=== PATIENT | male | born 1975 | race African-American/Black ===

== ENCOUNTER 2016-05-01 17:48 | Emergency (ER) | payer SELFPAY ==
[2016-05-01 17:56] VITALS: BP 124/81
[2016-05-01] MEDS ORDERED: IBUPROFEN 800 MG TABLET PO ONE (18:12)
--- NOTE | 2016-05-01 18:12 | ER Document Report ---
ED Medical Screen (RME) - General Stated Complaint: NUMBNESS, BURNING AND PAIN IN LEGS Time seen by provider: 18:09 Mode of Arrival: Ambulatory Information source: Patient Notes: 41 yo male presents to ed for pain and numbness to both leg, denies any long trips, smoking, or injuries. 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 IN LAST 30 DAYS: No - HPI Onset: Yesterday Onset/Duration: Gradual Quality of pain: Burning - and numbness Severity: Moderate Pain Level: 4 Associated Symptoms: Other - pain and numbness both legs Exacerbated by: Other - shoes on Relieved by: Denies Similar symptoms previously: No Recently seen / treated by doctor: No - Related Data Smoking: Non-smoker Frequency of alcohol use: None Drug Abuse: None Allergies/Adverse Reactions: No Known Allergies Allergy (Verified 08/14/12 00:22) Past Medical History - Social History Family history: DM, Malignancy Musculoskeltal Medical History: Reports Hx Musculoskeletal Deformity, Reports Hx Musculoskeletal Trauma - Pelvic fracture hip fracture Psychiatric Medical History: Reports: Hx Bipolar Disorder Traumatic Medical History: Reports: Hx Fractures - PELVIC FX Past Surgical History: Reports: Hx Orthopedic Surgery - left hip, right knee - Immunizations Immunizations up to date: Yes Hx Diphtheria, Pertussis, Tetanus Vaccination: Yes Physical Exam - Vital signs Vitals: Temp Pulse Resp BP Pulse Ox 98.5 F 79 18 124/81 98 05/01/16 17:54 05/01/16 17:54 05/01/16 17:54 05/01/16 17:54 05/01/16 17:54 Course - Vital Signs Vital signs: Temp Pulse Resp BP Pulse Ox 98.5 F 79 18 124/81 98 05/01/16 17:54 05/01/16 17:54 05/01/16 17:54 05/01/16 17:54 05/01/16 17:54
== END 2016-05-01 23:30 | disposition left against medical advice (07) ==
LOC: ER 17:48
DX: R20.0 Anesthesia of skin (principal); M79.605 Pain in left leg; M79.604 Pain in right leg; Z96.642 Presence of left artificial hip joint
CPT/HCPCS: 99281

== ENCOUNTER 2016-05-13 13:29 | Emergency (ER) | payer SELFPAY ==
--- NOTE | 2016-05-13 13:55 | ER Document Report ---
ED Medical Screen (RME) - General Stated Complaint: LEFT ARM PAIN Mode of Arrival: Ambulatory Information source: Patient Notes: Patient reports left elbow tenderness that started 2 days ago. Pain increases with range of motion. Patient denies any injury. Normal skin color and temperature overlying joint. TRAVEL OUTSIDE OF THE [place] IN LAST 30 DAYS: No - Related Data Allergies/Adverse Reactions: No Known Allergies Allergy (Verified 05/13/16 13:52) Past Medical History - Social History Family history: DM, Malignancy Musculoskeltal Medical History: Reports Hx Musculoskeletal Deformity, Reports Hx Musculoskeletal Trauma - Pelvic fracture hip fracture Psychiatric Medical History: Reports: Hx Bipolar Disorder Traumatic Medical History: Reports: Hx Fractures - PELVIC FX Past Surgical History: Reports: Hx Orthopedic Surgery - left hip, right knee - Immunizations Immunizations up to date: Yes Hx Diphtheria, Pertussis, Tetanus Vaccination: Yes Physical Exam - Vital signs Vitals: Temp Pulse Resp BP Pulse Ox 98.1 F 91 18 139/86 H 97 05/13/16 13:45 05/13/16 13:45 05/13/16 13:45 05/13/16 13:45 05/13/16 13:45 - Extremities General upper extremity: Tender - Left elbow Course - Vital Signs Vital signs: Temp Pulse Resp BP Pulse Ox 98.1 F 91 18 139/86 H 97 05/13/16 13:45 05/13/16 13:45 05/13/16 13:45 05/13/16 13:45 05/13/16 13:45
--- NOTE | 2016-05-13 15:49 | ER Document Report ---
ED Extremity Problem, Upper - General Chief Complaint: Elbow Injury Stated Complaint: LEFT ARM PAIN Time seen by provider: 15:45 Mode of Arrival: Ambulatory Notes: This is a 41-year-old male that presents today with left elbow pain for the past 3 days. He states that it is a constant 10 out of 10 pain with no radiation. He is unable to lift any weight with the left arm and the pain is worse with movement. He describes the pain as a throb alternating with a sharp pain with movement. Denies nausea vomiting fever or chills. Patient denies any injury to the extremity. He states that he does have pain medicine at home. TRAVEL OUTSIDE OF THE [place] IN LAST 30 DAYS: No - Related Data Allergies/Adverse Reactions: No Known Allergies Allergy (Verified 05/13/16 13:52) Past Medical History - General Information source: Patient - Social History Smoking Status: Never Smoker Chew tobacco use (# tins/day): No Frequency of alcohol use: None Drug Abuse: None Family History: DM, Hypertension Patient has suicidal ideation: No Patient has homicidal ideation: No Renal/ Medical History: Denies: Hx Peritoneal Dialysis Musculoskeltal Medical History: Reports Hx Musculoskeletal Deformity, Reports Hx Musculoskeletal Trauma - Pelvic fracture hip fracture Psychiatric Medical History: Reports: Hx Bipolar Disorder Traumatic Medical History: Reports: Hx Fractures - PELVIC FX Past Surgical History: Reports: Hx Orthopedic Surgery - left hip, right knee - Immunizations Immunizations up to date: Yes Hx Diphtheria, Pertussis, Tetanus Vaccination: Yes Review of Systems - Review of Systems Constitutional: denies: Chills, Fever EENT: No symptoms reported Cardiovascular: No symptoms reported Respiratory: No symptoms reported Gastrointestinal: No symptoms reported Genitourinary: No symptoms reported Musculoskeletal: See HPI Skin: No symptoms reported Hematologic/Lymphatic: No symptoms reported Neurological/Psychological: No symptoms reported Physical Exam - Vital signs Vitals: Temp Pulse Resp BP Pulse Ox 98.1 F 91 18 139/86 H 97 05/13/16 13:45 05/13/16 13:45 05/13/16 13:45 05/13/16 13:45 05/13/16 13:45 - General General appearance: Appears well In distress: None - HEENT Head: Normocephalic, Atraumatic Eyes: Normal Conjunctiva: Normal - Respiratory Respiratory status: No respiratory distress Breath sounds: Normal. No: Rales, Rhonchi, Stridor, Wheezing - Cardiovascular Rhythm: Regular Heart sounds: Normal auscultation - Abdominal Bowel sounds: Normal Tenderness: Nontender - Back Back: Normal, Nontender - Extremities General upper extremity: Normal inspection, Nontender, Normal strength, Normal temperature General lower extremity: Normal inspection, Nontender, Normal strength, Normal temperature - Neurological Cognition: Normal. No: Confused - Psychological Associated symptoms: Normal affect, Normal mood - Skin Skin Temperature: Warm Skin Moisture: Dry Skin Color: Normal Course - Re-evaluation Re-evalutation: 05/13/16 15:50 Patient does not have any elbow swelling. Skin is normal temperature and color. Patient was given multiple opportunities to ask questions. Radiograph results was shared with the patient. He states that he will follow-up with primary care physician. - Vital Signs Vital signs: Temp Pulse Resp BP Pulse Ox 98.3 F 73 16 136/88 H 99 05/13/16 16:01 05/13/16 16:01 05/13/16 16:01 05/13/16 16:01 05/13/16 16:01 Discharge - Discharge Clinical Impression: Left elbow pain Condition: Stable Disposition: HOME, SELF-CARE Additional Instructions: Return to the emergency department if symptoms worsen such as swelling, redness , decreased range of motion, decreased sensation,etc. Follow-up with primary care physician and orthopedics as soon as possible. Referrals: Benton Ridgealonso [facility] [Provider Group] - Follow up as needed
[2016-05-13 16:07] VITALS: BP 136/88
== END 2016-05-13 16:03 | disposition home or self-care (01) ==
LOC: ER 13:29
DX: S59.902A Unspecified injury of left elbow, initial encounter (principal); M25.522 Pain in left elbow; X58.XXXA Exposure to other specified factors, initial encounter
CPT/HCPCS: 99283

== ENCOUNTER 2017-06-02 23:59 | Emergency (ER) | payer SELFPAY ==
[2017-06-03] MEDS ORDERED: LIDOCAINE 1% INJ-PF (10 MG/ML) 30 ML SDV INJ ONE (01:07)
--- NOTE | 2017-06-03 01:12 | ER Document Report ---
ED Hand/Wrist Injury - General Chief Complaint: Hand Swelling Stated Complaint: FINGER PAIN Time Seen by Provider: 06/03/17 00:48 Mode of Arrival: Ambulatory Information source: Patient Notes: Patient is a 42-year-old male who presents to the ER today for swelling, redness , pain to his right fourth finger that he woke up with this morning. Patient denies any injury, insect bite, fever, chills or other signs of infection. He denies any drainage. TRAVEL OUTSIDE OF THE [place] IN LAST 30 DAYS: No - Related Data Allergies/Adverse Reactions: No Known Allergies Allergy (Verified 05/13/16 13:52) Past Medical History - General Information source: Patient - Social History Smoking Status: Never Smoker Chew tobacco use (# tins/day): No Frequency of alcohol use: None Drug Abuse: None Family History: DM, Hypertension Patient has suicidal ideation: No Patient has homicidal ideation: No Renal/ Medical History: Denies: Hx Peritoneal Dialysis Musculoskeltal Medical History: Reports Hx Musculoskeletal Deformity, Reports Hx Musculoskeletal Trauma - Pelvic fracture hip fracture Psychiatric Medical History: Reports: Hx Bipolar Disorder Traumatic Medical History: Reports: Hx Fractures - PELVIC FX Past Surgical History: Reports: Hx Orthopedic Surgery - left hip, right knee - Immunizations Immunizations up to date: Yes Hx Diphtheria, Pertussis, Tetanus Vaccination: Yes Review of Systems - Review of Systems Constitutional: No symptoms reported EENT: No symptoms reported Cardiovascular: No symptoms reported Respiratory: No symptoms reported Gastrointestinal: No symptoms reported Genitourinary: No symptoms reported Male Genitourinary: No symptoms reported Musculoskeletal: No symptoms reported Skin: See HPI Hematologic/Lymphatic: No symptoms reported Neurological/Psychological: No symptoms reported Physical Exam - Vital signs Vitals: Temp Pulse Resp BP Pulse Ox 98.8 F 98 16 146/80 H 99 06/03/17 00:02 06/03/17 00:02 06/03/17 00:02 06/03/17 00:02 06/03/17 00:02 - Notes Notes: PHYSICAL EXAMINATION: GENERAL: Well-appearing and in no acute distress. HEAD: Atraumatic, normocephalic. EYES: Pupils equal round and reactive to light, extraocular movements intact, sclera anicteric, conjunctiva are normal. NECK: Normal range of motion, supple without lymphadenopathy LUNGS: CTAB and equal. No wheezes rales or rhonchi. HEART: Regular rate and rhythm without murmurs ABDOMEN: Soft, no tenderness. No guarding, no rebound BACK: no vertebral tenderness, normal ROM GI/: no CVA tenderness EXTREMITIES: Normal range of motion, no pitting edema. No cyanosis. NEUROLOGICAL: Cranial nerves grossly intact. Normal sensory/motor exams. PSYCH: Normal mood, normal affect. SKIN: Warm, Dry, normal turgor, erythema and edema to the distal portion of the fourth digit on the right hand, exquisitely tender to palpation, fluctuance at the base of the nailbed consistent with paronychia Course - Vital Signs Vital signs: Temp Pulse Resp BP Pulse Ox 99.1 F 76 16 133/76 H 99 06/03/17 02:27 06/03/17 02:27 06/03/17 02:27 06/03/17 02:27 06/03/17 02:27 Procedures - Incision and Drainage Right Finger 4th digit Time completed: 02:00 Type: Simple Blade size: 11 I&D procedure: Betadine prep applied Incision Method: Incision made by scalpel Amount/type of drainage: thick pus - Additional Procedures digital block Time performed: 02:00 Additional Procedures: Other - digital block with 1% lidocaine, 5ml total to base of dorsal digit, 22g needle, prepared with betadine Discharge - Discharge Clinical Impression: Paronychia Condition: Stable Disposition: HOME, SELF-CARE Additional Instructions: Return immediately for any new or worsening symptoms. Follow up with primary care provider, call tomorrow to make followup appointment. Prescriptions: Cephalexin Monohydrate [Keflex 500 mg Capsule] 500 mg PO BID 7 Days #14 capsule Referrals: PERRY JARQUIN MD [Primary Care Provider] - Follow up as needed ISSAC OBREGON DO [ACTIVE STAFF] - Follow up as needed
[2017-06-03 02:31] VITALS: BP 133/76
== END 2017-06-03 02:31 | disposition home or self-care (01) ==
LOC: ER 23:59
DX: L03.011 Cellulitis of right finger (principal)
CPT/HCPCS: 99283; 10060; J3490

== ENCOUNTER 2017-08-04 14:23 | Emergency (ER) | payer SELFPAY ==
[2017-08-04 14:45] VITALS: BP 154/86
--- NOTE | 2017-08-04 15:21 | ER Document Report ---
ED Medical Screen (RME) - General Chief Complaint: Urinary Problem Stated Complaint: URINARY PROBLEMS Time Seen by Provider: 08/04/17 15:17 Mode of Arrival: Ambulatory Information source: Patient Notes: 42 yo male see by [facility] therapist (loyd) ordered UA and it had blood in it. Pt has had hematuria,clots, dysuria and tri. pelvic pain for 3 days. No penile discharge. No testicle pain or swelling. No hx prostatitis. No blood in stools, no diarrhea or constipation. No fever or chills. Abstinant for over 2 years. No hx cancer. No anticoagulants. No ETOH. TRAVEL OUTSIDE OF THE [place] IN LAST 30 DAYS: No - Related Data Allergies/Adverse Reactions: No Known Allergies Allergy (Verified 08/04/17 14:23) Past Medical History - Social History Family history: DM, Malignancy Renal/ Medical History: Denies: Hx Peritoneal Dialysis Musculoskeltal Medical History: Reports Hx Musculoskeletal Deformity, Reports Hx Musculoskeletal Trauma - Pelvic fracture hip fracture Psychiatric Medical History: Reports: Hx Bipolar Disorder Traumatic Medical History: Reports: Hx Fractures - PELVIC FX Past Surgical History: Reports: Hx Orthopedic Surgery - left hip, right knee - Immunizations Immunizations up to date: Yes Hx Diphtheria, Pertussis, Tetanus Vaccination: Yes Physical Exam - Vital signs Vitals: Temp Pulse Resp BP Pulse Ox 98.3 F 107 H 18 154/86 H 97 08/04/17 14:24 08/04/17 14:24 08/04/17 14:24 08/04/17 14:24 08/04/17 14:24 Course - Vital Signs Vital signs: Temp Pulse Resp BP Pulse Ox 98.3 F 107 H 18 154/86 H 97 08/04/17 14:24 08/04/17 14:24 08/04/17 14:24 08/04/17 14:24 08/04/17 14:24
[2017-08-04 17:19] LABS: ABSOLUTE EOSINOPHILS # (AUTO) 0.1 10^3/uL (0.0-0.6); ABSOLUTE LYMPHOCYTES (AUTO) 1.2 10^3/uL (0.5-4.7); ABSOLUTE MONOCYTES (AUTO) 0.4 10^3/uL (0.1-1.4); ABSOLUTE NEUT (AUTO) 3.5 10^3/uL (1.7-8.2); BASOPHILS % (AUTO) 0.6 % (0-2); HEMATOCRIT 46.3 % (37.9-51.0); HEMOGLOBIN 14.7 g/dL (13.5-17.0); LYMPHOCYTES % (AUTO) 23.7 % (13-45); MEAN CORPUSCULAR HEMOGLOBIN 25.5 pg (27.0-33.4); MEAN CORPUSCULAR HGB CONC 31.7 g/dL (32.0-36.0); MEAN CORPUSCULAR VOLUME 80 fl (80-97); PLATELET COUNT 284 10^3/uL (150-450); RED BLOOD COUNT 5.76 10^6/uL (4.35-5.55); RED CELL DISTRIBUTION WIDTH 14.6 % (11.5-14.0); SEGMENTED NEUTROPHILS % (AUTO) 67.7 % (42-78); TOTAL CELLS COUNTED % (AUTO) 100 %; WHITE BLOOD COUNT 5.1 10^3/uL (4.0-10.5)
[2017-08-04 17:32] LABS: APPEARANCE,URINE CLEAR; BILIRUBIN,URINE NEGATIVE (NEGATIVE); COLOR,URINE YELLOW; GLUCOSE, URINE NEGATIVE (NEGATIVE); KETONES,URINE NEGATIVE (NEGATIVE); LEUKOCYTE ESTERASE,URINE NEGATIVE (NEGATIVE); NITRITE,URINE NEGATIVE (NEGATIVE); PROTEIN,URINE NEGATIVE (NEGATIVE); URINE SPECIFIC GRAVITY 1.012; UROBILINOGEN,URINE NEGATIVE mg/dL (<2.0)
[2017-08-04 17:38] LABS: ALANINE AMINOTRANSFERASE 29 U/L (21-72); ALBUMIN 3.9 g/dL (3.5-5.0); ALKALINE PHOSPHATASE 52 U/L (38-126); ANION GAP 10 (5-19); ASPARTATE AMINO TRANSFERASE 17 U/L (17-59); BILIRUBIN,DIRECT 0.3 mg/dL (0.0-0.4); BLOOD UREA NITROGEN 10 mg/dL (7-20); CALCIUM 9.3 mg/dL (8.4-10.2); CARBON DIOXIDE 28 mmol/L (22-30); CHLORIDE 102 mmol/L (98-107); GLUCOSE 99 mg/dL (75-110); POTASSIUM 4.3 mmol/L (3.6-5.0); SODIUM 140.4 mmol/L (137-145); TOTAL PROTEIN 6.3 g/dL (6.3-8.2)
--- NOTE | 2017-08-04 18:06 | ER Document Report ---
ED General - General Chief Complaint: Urinary Problem Stated Complaint: URINARY PROBLEMS Time Seen by Provider: 08/04/17 15:17 Mode of Arrival: Ambulatory TRAVEL OUTSIDE OF THE [place] IN LAST 30 DAYS: No - HPI Patient complains to provider of: Hematuria Notes: Patient was [place] [facility] and was directed to the ER for blood in his urine and low white count. Upon seeing the patient patient's patient room upon my entrance patient looks to me states "what my results". I asked that the patient was anxious to leave patient states yes. Patient denies any fever chills nausea vomiting. Denies any flank pain. Patient denies any penile discharge denies any sexual intercourse in the last 2 weeks. Patient again is anxious to leave. - Related Data Allergies/Adverse Reactions: No Known Allergies Allergy (Verified 08/04/17 14:23) Past Medical History - General Information source: Patient - Social History Smoking Status: Never Smoker Chew tobacco use (# tins/day): No Frequency of alcohol use: None Drug Abuse: None Family History: DM, Hypertension Patient has suicidal ideation: No Patient has homicidal ideation: No Renal/ Medical History: Denies: Hx Peritoneal Dialysis Musculoskeltal Medical History: Reports Hx Musculoskeletal Deformity, Reports Hx Musculoskeletal Trauma - Pelvic fracture hip fracture Psychiatric Medical History: Reports: Hx Bipolar Disorder Traumatic Medical History: Reports: Hx Fractures - PELVIC FX Past Surgical History: Reports: Hx Orthopedic Surgery - left hip, right knee - Immunizations Immunizations up to date: Yes Hx Diphtheria, Pertussis, Tetanus Vaccination: Yes Review of Systems - Review of Systems Constitutional: No symptoms reported EENT: No symptoms reported Cardiovascular: No symptoms reported Respiratory: No symptoms reported Gastrointestinal: No symptoms reported Genitourinary: Hematuria Male Genitourinary: No symptoms reported Musculoskeletal: No symptoms reported Skin: No symptoms reported Hematologic/Lymphatic: No symptoms reported Neurological/Psychological: No symptoms reported -: Yes All other systems reviewed and negative Physical Exam - Vital signs Vitals: Temp Pulse Resp BP Pulse Ox 98.3 F 107 H 18 154/86 H 97 08/04/17 14:24 08/04/17 14:24 08/04/17 14:24 08/04/17 14:24 08/04/17 14:24 Interpretation: Normal - General General appearance: Appears well, Alert - HEENT Head: Normocephalic, Atraumatic Eyes: Normal Pupils: PERRL - Respiratory Respiratory status: No respiratory distress - Extremities General upper extremity: Normal ROM General lower extremity: Normal ROM, Normal weight bearing - Neurological Neuro grossly intact: Yes Cognition: Normal Gomez Coma Scale Eye Opening: Spontaneous Gomez Coma Scale Verbal: Oriented [place] Coma Scale Motor: Obeys Commands Gomez Coma Scale Total: 15 Speech: Normal Motor strength normal: LUE, RUE, LLE, RLE Sensory: Normal - Psychological Associated symptoms: Agitated, Angry - Skin Skin Temperature: Warm Skin Moisture: Dry Skin Color: Normal Course - Re-evaluation Re-evalutation: 08/04/17 22:38 After asking the patient if you questions he again stated that he would just like it was results refusing a thorough physical examination. Physical examination was based off observation seen patient ambulate around the room. Patient placed on a scope explained to patient there are signs of blood in his urine no signs of any infection. The patient's history of no flank pain with do not suspect kidney stones at this time. Patient states understanding is requesting to be discharged immediately. - Vital Signs Vital signs: Temp Pulse Resp BP Pulse Ox 98.7 F 87 18 154/86 H 99 08/04/17 18:09 08/04/17 18:09 08/04/17 18:09 08/04/17 14:24 08/04/17 18:09 - Laboratory Result Diagrams: 08/04/17 16:50 08/04/17 16:50 Laboratory results interpreted by me: 08/04/17 08/04/17 16:50 17:15 RBC 5.76 H MCH 25.5 L MCHC 31.7 L RDW 14.6 H Urine Blood LARGE H Discharge - Discharge Clinical Impression: Hematuria Qualifiers: Hematuria type: unspecified type Qualified Code(s): R31.9 - Hematuria, unspecified Condition: Good Disposition: HOME, SELF-CARE Instructions: Hematuria ([facility]) Additional Instructions: Your laboratory studies showed a small amount of blood and urine however no signs of significant pathology. Without any flank pain I do not suspect any kidney stones. I will make sure that she follow-up with your primary care physician or physicians listed. Return to ER symptoms worsen. Forms: Return to Work
[2017-08-04 18:48] LABS: CHLAM PCR NOT DETECTED (NOT DETECT); GON PCR NOT DETECTED (NOT DETECT)
== END 2017-08-04 18:09 | disposition home or self-care (01) ==
LOC: ER 14:23
DX: R31.9 Hematuria, unspecified (principal)
CPT/HCPCS: 36415; 80053; 81001; 85025; 87086; 87491; 87591; 99283

== ENCOUNTER 2018-07-10 21:21 | Emergency (ER) | payer OTHER ==
--- NOTE | 2018-07-10 23:57 | RADIOLOGY REPORT (SQ) ---
EXAM DESCRIPTION: XR KNEE 4 OR MORE VIEWS COMPLETED DATE/TME: 07/10/2018 22:17 CLINICAL HISTORY: 43 years, Male, INJURY COMPARISON: 07/24/2015. NUMBER OF VIEWS: Four TECHNIQUE: Four views of the knee were obtained in AP, bilateral oblique and lateral projection. LIMITATIONS: None. FINDINGS: Degenerative change of the knee with sharpening the tibial spines and tricompartmental osteophytes. No fracture or dislocation. The joint spaces are preserved. Soft tissues are within normal limits. Nonspecific periosteal reaction of the distal femur. Trace suprapatellar joint effusion. Linear sclerosis of the distal femur and proximal tibia. IMPRESSION: 1. No acute fracture or dislocation. 2. Trace suprapatellar joint effusion of uncertain etiology. 3. Nonspecific periosteal reaction of the distal femur and diffuse linear sclerosis distal femur of uncertain etiology may reflect sequela of prior trauma or infectious process, stable since examination dated 07/24/2015. copyright 2010 [employer]- All Rights Reserved
[2018-07-11] MEDS ORDERED: IBUPROFEN 600 MG TABLET PO ONE (00:47)
[2018-07-11] MEDS ORDERED: HYDROCODONE/ACETAMINOPHEN 5-325 MG (6 TAB/ER DISP) PO PRN (00:47)
--- NOTE | 2018-07-11 00:53 | ER Document Report ---
HPI - HPI Time Seen by Provider: 07/10/18 23:32 Pain Level: 5 Notes: Patient is an otherwise healthy 43-year-old male who presents with left knee pain that has been going on for 3 days. He states he was at work lifting things when he heard a pop and started to have pain to the left knee. He reports swelling started the following day. He now reports swelling has subsided however the pain persists. He has tried taking Tylenol at home for the pain with minimal relief. Past Medical History - General Information source: Patient - Social History Smoking Status: Never Smoker Frequency of alcohol use: None Drug Abuse: None Family History: DM, Hypertension Renal/ Medical History: Denies: Hx Peritoneal Dialysis Musculoskeletal Medical History: Reports Hx Musculoskeletal Deformity, Reports Hx Musculoskeletal Trauma - Pelvic fracture hip fracture Psychiatric Medical History: Reports: Hx Bipolar Disorder Traumatic Medical History: Reports: Hx Fractures - PELVIC FX Past Surgical History: Reports: Hx Orthopedic Surgery - left hip, right knee - Immunizations Immunizations up to date: Yes Hx Diphtheria, Pertussis, Tetanus Vaccination: Yes Vertical Provider Document - CONSTITUTIONAL Notes: PHYSICAL EXAMINATION: GENERAL: Well-appearing, well-nourished and in no acute distress. HEAD: Atraumatic, normocephalic. EYES: Pupils equal round extraocular movements intact, conjunctiva are normal. ENT: Nares patent NECK: Normal range of motion LUNGS: No respiratory distress Musculoskeletal: Normal range of motion, no swelling, erythema or ecchymosis noted to left knee. Tenderness to palpation to medial aspect of knee. No crepitus on palpation. Normal pulses motor and sensation distal to area of pain. NEUROLOGICAL: Normal speech, normal gait. PSYCH: Normal mood, normal affect. SKIN: Warm, Dry, normal turgor, no rashes or lesions noted. - INFECTION CONTROL TRAVEL OUTSIDE OF THE [place] IN LAST 30 DAYS: No Course - Re-evaluation Re-evalutation: X-rays negative for any acute fracture or dislocation. I did discuss with the patient that this does not necessarily rule out an internal knee injury. Patien t will be given a knee immobilizer and crutches. He will be instructed to take ibuprofen. He will follow-up with orthopedics if knee not improving over the next several days. Patient and family member at bedside both verbalized understanding and agreement with plan. - Vital Signs Vital signs: Temp Pulse Resp BP Pulse Ox 98.4 F 86 18 138/92 H 100 07/10/18 21:40 07/10/18 21:40 07/10/18 21:40 07/10/18 21:40 07/10/18 21:40 Procedures - Immobilization Left knee Pre-Proc Neuro Vasc Exam: Normal Immobilizer type: Crutches, Knee immobilizer Performed by: PCT Post-Proc Neuro Vasc Exam: Normal Alignment checked and good: Yes Discharge - Discharge Clinical Impression: Knee injury Qualifiers: Encounter type: initial encounter Laterality: left Qualified Code(s): S89.92XA - Unspecified injury of left lower leg, initial encounter Condition: Stable Disposition: HOME, SELF-CARE Instructions: Suspected Internal Knee Injury ([facility]) Additional Instructions: Although your x-ray today did not show any bony abnormality such as a fracture or dislocation you have an internal knee injury such as a ligament or tendon injury. Use the knee immobilizer and crutches as discussed. Please take ibuprofen 600 mg every 6 hours for pain and inflammation. Use the hydrocodone for severe pain only. Ice the area 20 minutes on 20 minutes off. Elevate as discussed. Call orthopedics to schedule a follow-up. I have also given you contact information for the [facility] in case you are unable to get into see orthopedics. Prescriptions: Hydrocodone Bit/Acetaminophen [Hydrocodon-Acetaminophen 5-325] 1 each PO Q4H #12 tablet Forms: Special Work Note Referrals: ISSAC OBREGON DO [ACTIVE STAFF] - Follow up as needed [facility] [Provider Group] - Follow up as needed
[2018-07-11 01:55] VITALS: BP 154/88
== END 2018-07-11 01:46 | disposition home or self-care (01) ==
LOC: ER 21:21
DX: S89.92XA Unspecified injury of left lower leg, initial encounter (principal); M25.562 Pain in left knee; X50.9XXA Other and unspecified overexertion or strenuous movements or postures, initial encounter; Y99.0 Civilian activity done for income or pay
CPT/HCPCS: 99283; 73564; L1830